=== PATIENT | female | born 1990 | race Caucasian/White ===

== ENCOUNTER 2017-06-20 16:17 | Emergency (ER) | payer OTHER ==
[~2017-06-20] VITALS: Ht 157.5 cm; Wt 72.6 kg
[2017-06-20 17:21] VITALS: BP 126/79
[2017-06-20] MEDS ORDERED: DEXAMETHASONE 10 MG/ML VIAL IM ONE (17:40)
[2017-06-20] MEDS ORDERED: KETOROLAC 60 MG/2 ML VIAL IM ONE (17:40)
--- NOTE | 2017-06-20 17:58 | NUR ---
PATIENT IS A 27 YO FEMALE BIB SELF FOR LOW BACK PAIN, AWAKE AND ALERT ABLE TO AMBULATE UNASSISTED
[2017-06-20 19:10] VITALS: BP 126/79
--- NOTE | 2017-06-20 19:11 | NUR ---
Patient discharged with v/s stable. Written and verbal after care instructions given and explained. Patient alert, oriented and verbalized understanding of instructions. Ambulatory with steady gait. All questions addressed prior to discharge. ID band removed. Patient advised to follow up with PMD. Rx of MEDROL DOSE ELIULIANNEERIL given. Patient educated on indication of medication including possible reaction and side effects. Opportunity to ask questions provided and answered.
== END 2017-06-20 19:11 | disposition home or self-care (01) ==
LOC: MED 16:17
DX: M54.40 Lumbago with sciatica, unspecified side (principal)
CPT/HCPCS: 72110; 81002; 81025; 96372; 99284; J1100; J1885

== ENCOUNTER 2017-12-04 21:34 | Emergency (ER) | payer OTHER ==
[~2017-12-04] VITALS: Ht 157.5 cm; Wt 69.1 kg
[2017-12-04 21:41] VITALS: BP 114/71
[2017-12-04] MEDS ORDERED: KETOROLAC 60 MG/2 ML VIAL IM ONE (23:10)
[2017-12-04] MEDS ORDERED: ONDANSETRON 4 MG ODT PO ONE (23:10)
[2017-12-04 23:49] VITALS: BP 114/71
== END 2017-12-04 23:49 | disposition home or self-care (01) ==
LOC: MED 21:34
DX: N39.0 Urinary tract infection, site not specified (principal)
CPT/HCPCS: 81002; 81025; 96372; 99283; J1885; S0119

== ENCOUNTER 2019-07-24 18:22 | Emergency (ER) | payer OTHER ==
[~2019-07-24] VITALS: Ht 157.5 cm; Wt 95.8 kg
[2019-07-24 19:04] VITALS: BP 134/79
--- NOTE | 2019-07-24 19:10 | NUR ---
STREPT SWAB COLLECTED
--- NOTE | 2019-07-24 20:04 | NUR ---
PT AMBULATED TO BED 03
--- NOTE | 2019-07-24 20:10 | NUR ---
PATIENT SITTING UP IN CHAIR, STATES SHE HAS 9/10 PAIN. INFORMED THAT WE ARE STILL AWAITING THE RESULTS FROM HER STREPT TEST. STATES NO NEEDS AT THIS TIME.
[2019-07-24 21:08] VITALS: BP 128/73
--- NOTE | 2019-07-24 21:08 | NUR ---
Patient discharged with v/s stable. Pt states relief. Written and verbal after care instructions given and explained. Patient alert, oriented and verbalized understanding of instructions and instructed when to return to ER. Ambulatory with steady gait. All questions addressed prior to discharge. ID band removed. Patient advised to follow up with PMD. Rx of Penicillin and Ibuprofen given. Patient educated on indication of medication including possible reaction and side effects. Opportunity to ask questions provided and answered.
== END 2019-07-24 21:08 | disposition home or self-care (01) ==
LOC: MED 18:22
DX: J02.0 Streptococcal pharyngitis (principal)
CPT/HCPCS: 87081; 99283

== ENCOUNTER 2022-07-05 16:03 | Emergency (ER) | payer OTHER ==
[~2022-07-05] VITALS: Ht 157.5 cm; Wt 100.7 kg
[2022-07-05 16:34] VITALS: BP 136/99
--- NOTE | 2022-07-05 17:52 | NUR ---
PATIENT LEFT WITHOUT BEING SEEN BY DR. CHI. NO FURTHER CARE PROVIDED FOR PATIENT.
== END 2022-07-05 17:52 | disposition left against medical advice (07) ==
LOC: MED 16:03
DX: M54.50 Low back pain, unspecified (principal); Z53.21 Procedure and treatment not carried out due to patient leaving prior to being seen by health care provider